=== PATIENT | female | born 1995 | race Caucasian/White ===

== ENCOUNTER 2019-04-09 21:40 | Emergency (ER) | payer OTHER ==
[~2019-04-09] VITALS: Ht 157.5 cm; Wt 57.2 kg
[2019-04-09 21:46] VITALS: Ht 157.5 cm; Wt 57.2 kg
[2019-04-09 22:33] LABS: CALCIUM 8.6 mg/dL (8.5-10.1); CARBON DIOXIDE 32.8 mmol/L (21-32); CHLORIDE SERUM 104 mmol/L (98-107); CREATININE SERUM 0.8 mg/dL (0.6-1.0); GFR1 > 60 mL/min; GLUCOSE SERUM 91 mg/dL (74-106); POTASSIUM SERUM 3.6 mmol/L (3.5-5.1); SODIUM SERUM 140 mmol/L (136-145)
[2019-04-09 22:37] LABS: ALBUMIN 3.4 g/dL (3.4-5.0); ALKALINE PHOSPHATASE 85 U/L (46-116); ALT/SGPT 29 U/L (14-59); AST/SGOT 19 U/L (15-37); BILIRUBIN TOTAL 0.25 mg/dL (0.20-1.00); LIPASE 129 IU/L (73-393); TOTAL PROTEIN, SERUM 6.7 g/dL (6.4-8.2)
[2019-04-09 23:41] VITALS: BP 104/70
== END 2019-04-09 23:41 | disposition home or self-care (01) ==
LOC: ED 21:40
PROVIDERS: Emergency Medicine
DX: R10.13 Epigastric pain (principal)
CPT/HCPCS: J1885